=== PATIENT | female | born 1985 | race Caucasian/White ===

== ENCOUNTER 2019-10-02 18:41 | Emergency (ER) | payer MEDICAID ==
[~2019-10-02] VITALS: Ht 147.3 cm; Wt 60.8 kg
[2019-10-02 19:10] VITALS: BP 148/88; Ht 147.3 cm; Wt 60.8 kg
== END 2019-10-02 20:19 | disposition home or self-care (01) ==
LOC: ED 18:41
DX: H81.10 Benign paroxysmal vertigo, unspecified ear (principal)
CPT/HCPCS: J8597